=== PATIENT | female | born 1950 | race Caucasian/White ===

== ENCOUNTER → 2016-05-22 | Outpatient (CLI) | payer MEDICARE, BC ==
[~2016-05-22] MED LIST: ALAVERT10 M1 PO; AMBIEN 5MG TABLE5 MG PO; ASPIRIN 81M81 MG/TA2 PO; CARBIDOPA PO; DESVENLAFAXINE50 MG PO; EZ TEARS OD; FLONASE NASAL S16 GM NS; K-DUR 10 MEQ T10 MEQ PO; KLONOPIN WAFER0.5 MG PO; LASIX 20MG TABL20 MG PO; LEVAQUIN 750MG750 M1 PO; LEVODOPA PO; LUTEIN20 M1 PO; LYRICA 100MG C100 M1 PO; NATURAL IRON65 MG PO; NORCO 325 MG-51 TAB PO; PRILOSEC 20MG20 MG PO; REQUIP 0.5MG0.5 MG PO; SANCTURA20 MG PO; SYMMETREL100 MG PO; ZOLOFT 100MG100 MG PO; [UNRECOGNIZED DRUG - OTHER] PO
== END ==
LOC: BHSO 09:51
DX: F06.32 Mood disorder due to known physiological condition with major depressive-like episode (principal)

== ENCOUNTER → 2016-07-02 | Outpatient (CLI) | payer MEDICARE, BC | LOC: BHSO 10:22 | DX: F06.32 Mood disorder due to known physiological condition with major depressive-like episode (principal) ==

== ENCOUNTER 2016-09-28 09:38 | Outpatient (CLI) | payer MEDICARE, BC ==
[~2016-09-28] VITALS: Ht 162.6 cm; Wt 86.3 kg
[~2016-09-28 09:38] MED LIST changes: -ALAVERT10 M1 PO; -CARBIDOPA PO; -DESVENLAFAXINE50 MG PO; -EZ TEARS OD; -FLONASE NASAL S16 GM NS; -KLONOPIN WAFER0.5 MG PO; -LEVODOPA PO; -LUTEIN20 M1 PO; -NATURAL IRON65 MG PO; -[UNRECOGNIZED DRUG - OTHER] PO
[2016-09-28] MEDS ORDERED: CARBIDOPA PO (09:59)
[2016-09-28] MEDS ORDERED: LEVODOPA PO (09:59)
[2016-09-28] MEDS ORDERED: [UNRECOGNIZED DRUG - OTHER] PO (10:00)
[2016-09-28] MEDS ORDERED: DESVENLAFAXINE50 MG PO (10:01)
[2016-09-28] MEDS ORDERED: ALAVERT10 M1 PO (10:09)
[2016-09-28] MEDS ORDERED: KLONOPIN WAFER0.5 MG PO (10:09)
[2016-09-28] MEDS ORDERED: FLONASE NASAL S16 GM NS (10:10)
[2016-09-28] MEDS ORDERED: LUTEIN20 M1 PO (10:11)
[2016-09-28] MEDS ORDERED: NATURAL IRON65 MG PO (10:12)
[2016-09-28] MEDS ORDERED: EZ TEARS OD (10:12)
[2016-09-28 12:41] VITALS: PULSE 65
[2016-09-28 14:50] VITALS: BP 149/83; PULSE 62
[2016-09-28 15:00] VITALS: BP 148/78; PULSE 61
[2016-09-28 15:18] VITALS: BP 149/83; PULSE 65
[2016-09-28 15:55] VITALS: BP 147/75; PULSE 63
== END 2016-09-28 17:30 | disposition home or self-care (01) ==
LOC: COL.CAR 09:38
DX: M80.88XA Other osteoporosis with current pathological fracture, vertebra(e), initial encounter for fracture (principal); M79.7 Fibromyalgia
CPT/HCPCS: C1713; J2250; J3010; J7120

== ENCOUNTER → 2016-10-09 | Outpatient (CLI) | payer MEDICARE, BC ==
[~2016-10-09] MED LIST changes: +ALAVERT10 M1 PO; +CARBIDOPA PO; +DESVENLAFAXINE50 MG PO; +EZ TEARS OD; +FLONASE NASAL S16 GM NS; +KLONOPIN WAFER0.5 MG PO; +LEVODOPA PO; +LUTEIN20 M1 PO; +NATURAL IRON65 MG PO; +[UNRECOGNIZED DRUG - OTHER] PO
== END ==
LOC: MC.RAD 13:00
DX: Z12.31 Encounter for screening mammogram for malignant neoplasm of breast (principal)

== ENCOUNTER → 2016-10-16 | Outpatient (CLI) | payer MEDICARE, BC | LOC: BHSO 09:02 | DX: F06.32 Mood disorder due to known physiological condition with major depressive-like episode (principal) ==

== ENCOUNTER → 2016-12-25 | Outpatient (CLI) | payer MEDICARE, BC | LOC: BHSO 14:51 | DX: F06.32 Mood disorder due to known physiological condition with major depressive-like episode (principal) ==

== ENCOUNTER → 2017-04-12 | Outpatient (CLI) | payer MEDICARE, BC | LOC: BHSO 14:23 | DX: F06.32 Mood disorder due to known physiological condition with major depressive-like episode (principal) | CPT/HCPCS: G0463 ==

== ENCOUNTER → 2017-05-03 | Outpatient (CLI) | payer MEDICARE, BC | LOC: BHSO 10:09 | DX: F06.32 Mood disorder due to known physiological condition with major depressive-like episode (principal) | CPT/HCPCS: G0463 ==

== ENCOUNTER → 2017-11-18 | Outpatient (CLI) | payer MEDICARE, BC | LOC: MC.RAD 08:56 | DX: Z12.31 Encounter for screening mammogram for malignant neoplasm of breast (principal) ==

== ENCOUNTER 2018-05-08 08:32 | Emergency (ER) | payer MEDICARE, BC ==
[~2018-05-08] VITALS: Ht 162.6 cm; Wt 86.4 kg
[2018-05-08 08:39] VITALS: TEMP 98.5
[2018-05-08 08:58] LABS: BASO % 0.3 % (0.0-2.0); EOS % 0.5 % (0-4.0); GRAN # 5.5 (1.4-6.5); GRAN % 84.9 % (42.2-75.2); HEMATOCRIT 46.8 % (37.0-47.0); HEMOGLOBIN 15.9 g/dl (12.5-16.0); LYMPH # 0.5 (1.2-3.4); LYMPH % 7.8 % (20.0-51.0); MEAN CELL VOLUME 89 fl (80.0-100.0); MEAN CORPUSCULAR HEMOGLOBIN 30 pg (27.0-31.0); MEAN CORPUSCULAR HGB CONC 34 g/dl (33.0-37.0); MEAN PLATELET VOLUME 9.4 fl (7.4-10.4); MONO # 0.4 (0.1-0.6); MONO % 6.2 % (1.7-9.3); PLATELET COUNT 175 K/mm3 (130-400); RED BLOOD COUNT 5.29 M/mm3 (4.10-5.30); REDCELL DISTRIBUTION WIDTH-CV 12.9 % (11.5-14.5)
[2018-05-08] MEDS ORDERED: SINEMET 25/101 UDTAB PO (09:12)
[2018-05-08 09:14] LABS: ALANINE AMINOTRANSFERASE 10 U/L (9-52); ALBUMIN 4.5 gm/dL (3.5-5.0); ALKALINE PHOSPHATASE 115 U/L (50-136); ANION GAP 11 mmol/L (7-16); AST,SGOT 29 U/L (15-37); BILIRUBIN,TOTAL 1.2 mg/dL (0.0-1.0); BLOOD UREA NITROGEN 23 mg/dL (7-17); CALCIUM 9.2 mg/dL (8.4-10.2); CARBON DIOXIDE 23 mmol/L (22-30); CHLORIDE 102 mmol/L (98-107); CREATININE, serum 1.03 mg/dL (0.52-1.25); GLUCOSE 109 mg/dL (74-106); LIPASE 128 U/L (23-300); POTASSIUM 3.9 mmol/L (3.4-5.0); SODIUM 136 mmol/L (137-145); TOTAL PROTEIN 8.1 gm/dL (6.4-8.2)
[2018-05-08 09:23] LABS: TROPONIN-I < 0.012 ng/mL (0.000-0.035)
[2018-05-08] MEDS ORDERED: REQUIP 1MG T1 MG/TAB PO (09:47)
[2018-05-08] MEDS ORDERED: ZOLOFT 50MG50 MG PO (09:47)
[2018-05-08] MEDS ORDERED: KLONOPIN 0.5MG0.5 MG PO (09:48)
[2018-05-08] MEDS ORDERED: LYRICA 50MG CAP50 MG PO (09:48)
[2018-05-08] MEDS ORDERED: PRILOSEC 20MG20 MG PO (09:49)
[2018-05-08] MEDS ORDERED: ASPIRIN E.C. 8181 MG PO (09:49)
[2018-05-08] MEDS ORDERED: PROBIOTIC FORMU1 CAP PO (09:49)
[2018-05-08] MEDS ORDERED: STOOL SOFTENER100 M2 PO (09:50)
[2018-05-08] MEDS ORDERED: LUTEIN20 M1 PO (09:51)
[2018-05-08] MEDS ORDERED: OMEGA-3 1000 MG1 CAP PO (09:51)
[2018-05-08] MEDS ORDERED: SYMMETREL100 M1 PO (09:53)
[2018-05-08] MEDS ORDERED: ZOFRAN ODT8 MG PO (13:34)
[2018-05-08 14:00] LABS: COLLECTION METHOD CLEAN CATCH
[2018-05-08 14:20] VITALS: BP 104/57; PULSE 93
[2018-05-08 14:23] LABS: MUCOUS Present /lpf; PH 5 (5-8); URINE APPEARANCE Clear; URINE BACTERIA Rare /hpf; URINE BILIRUBIN Negative (NEGATIVE); URINE BLOOD Negative (NEGATIVE); URINE COLOR Yellow; URINE GLUCOSE Negative (NEGATIVE); URINE KETONE Negative (NEGATIVE); URINE LEUKOCYTE ESTERASE Negative (NEGATIVE); URINE NITRATE Negative (NEGATIVE); URINE PROTEIN(semi-quant) Negative (NEGATIVE); URINE RBC 0-2 /hpf; URINE UROBILINOGEN >=4.0 mg/dL (NEGATIVE)
== END 2018-05-08 14:23 | disposition home or self-care (01) ==
LOC: COL.ER 08:32
PROVIDERS: Emergency Medicine
DX: R10.13 Epigastric pain (principal); G20 Parkinson's disease; K21.9 Gastro-esophageal reflux disease without esophagitis; M79.7 Fibromyalgia; Z79.82 Long term (current) use of aspirin; Z87.19 Personal history of other diseases of the digestive system; Z90.49 Acquired absence of other specified parts of digestive tract; Z90.710 Acquired absence of both cervix and uterus
CPT/HCPCS: J1170; J2405; J7030; Q9967

== ENCOUNTER 2018-06-10 08:30 | Outpatient (RCR) | payer MEDICARE, BC ==
[~2018-06-10 08:30] MED LIST changes: +ASPIRIN E.C. 8181 MG PO; +KLONOPIN 0.5MG0.5 MG PO; +LYRICA 50MG CAP50 MG PO; +OMEGA-3 1000 MG1 CAP PO; +PROBIOTIC FORMU1 CAP PO; +REQUIP 1MG T1 MG/TAB PO; +SINEMET 25/101 UDTAB PO; +STOOL SOFTENER100 M2 PO; +SYMMETREL100 M1 PO; +ZOFRAN ODT8 MG PO; +ZOLOFT 50MG50 MG PO
== END 2018-06-10 09:45 | disposition home or self-care (01) ==
LOC: WSC 08:30
DX: G20 Parkinson's disease (principal); M79.7 Fibromyalgia; G25.81 Restless legs syndrome; Z79.899 Other long term (current) drug therapy

== ENCOUNTER → 2018-08-25 | Outpatient (CLI) | payer MEDICARE, BC | LOC: COL.RAD 09:52 | DX: R13.10 Dysphagia, unspecified (principal); Z86.69 Personal history of other diseases of the nervous system and sense organs ==

== ENCOUNTER → 2019-04-29 | Outpatient (CLI) | payer MEDICARE, BC | LOC: COL.VAS 12:07 | DX: Z13.6 Encounter for screening for cardiovascular disorders (principal); R22.41 Localized swelling, mass and lump, right lower limb; Z96.641 Presence of right artificial hip joint ==

== ENCOUNTER → 2019-08-31 | Outpatient (CLI) | payer MEDICARE, BC | LOC: COL.LAB 15:15 | DX: R19.7 Diarrhea, unspecified (principal); R52 Pain, unspecified; R53.83 Other fatigue; Z20.828 Contact with and (suspected) exposure to other viral communicable diseases ==

== ENCOUNTER → 2019-09-09 | Outpatient (CLI) | payer MEDICARE, BC | LOC: MC.RAD 14:48 | DX: Z12.31 Encounter for screening mammogram for malignant neoplasm of breast (principal) ==

== ENCOUNTER → 2020-10-06 | Outpatient (CLI) | payer MEDICARE, BC | LOC: MC.RAD 13:14 | DX: Z12.31 Encounter for screening mammogram for malignant neoplasm of breast (principal) ==